=== PATIENT | male | born 1975 | race Caucasian/White ===

== ENCOUNTER 2017-10-13 04:05 | Emergency (ER) | payer SELFPAY ==
[~2017-10-13] VITALS: Ht 175.3 cm; Wt 103.4 kg
[2017-10-13 04:17] VITALS: Ht 175.3 cm; Wt 103.4 kg
[2017-10-13 05:06] LABS: BASOPHIL % 0.3 % (0-2); PLATELET COUNT 252 x10^3mcL (130-400); RED CELL DISTRIBUTION WIDTH 13.2 % (11.5-14.5)
[2017-10-13 05:16] LABS: CALCIUM 8.5 mg/dL (8.5-10.1); CARBON DIOXIDE 26.3 mmol/L (21-32); CHLORIDE SERUM 105 mmol/L (98-107); CREATININE SERUM 0.9 mg/dL (0.7-1.3); GFR1 > 60 mL/min; GLUCOSE SERUM 121 mg/dL (74-106); POTASSIUM SERUM 3.7 mmol/L (3.5-5.1); SODIUM SERUM 141 mmol/L (136-145)
[2017-10-13 05:39] VITALS: BP 137/72
== END 2017-10-13 06:19 | disposition home or self-care (01) ==
LOC: ED 04:05
PROVIDERS: Emergency Medicine
DX: S20.219A Contusion of unspecified front wall of thorax, initial encounter (principal); S10.93XA Contusion of unspecified part of neck, initial encounter; S09.90XA Unspecified injury of head, initial encounter; Y04.2XXA Assault by strike against or bumped into by another person, initial encounter
CPT/HCPCS: J7030; Q0092

== ENCOUNTER 2019-04-27 18:25 | Emergency (ER) | payer OTHER ==
[~2019-04-27] VITALS: Ht 177.8 cm; Wt 108.9 kg
[2019-04-27 18:29] VITALS: BP 128/75; Ht 177.8 cm; Wt 108.9 kg
== END 2019-04-27 23:02 | disposition left against medical advice (07) ==
LOC: ED 18:25
DX: Z53.21 Procedure and treatment not carried out due to patient leaving prior to being seen by health care provider (principal)

== ENCOUNTER 2019-08-27 21:28 | Emergency (ER) | payer OTHER ==
[~2019-08-27] VITALS: Ht 177.8 cm; Wt 111.6 kg
[2019-08-27 21:34] VITALS: Ht 177.8 cm; Wt 111.6 kg
[2019-08-27 23:08] VITALS: BP 125/83
== END 2019-08-27 22:54 | disposition home or self-care (01) ==
LOC: ED 21:28
DX: M54.2 Cervicalgia (principal); M54.9 Dorsalgia, unspecified; M25.512 Pain in left shoulder; V49.49XA Driver injured in collision with other motor vehicles in traffic accident, initial encounter; Y93.I9 Activity, other involving external motion; Y92.488 Other paved roadways as the place of occurrence of the external cause; Y99.8 Other external cause status